=== PATIENT | female | born 1950 | race Caucasian/White ===

== ENCOUNTER 2016-09-07 09:48 | Day surgery (SDC) | payer MEDICARE ==
[~2016-09-07] VITALS: Ht 165.1 cm; Wt 48.8 kg
[2016-09-07 11:00] VITALS: BP 142/67; PULSE 57; RESP 24; Ht 165.1 cm; Wt 48.8 kg
[2016-09-07] MEDS ORDERED: PROPOFOL 20 ML ONE ×2 (11:06→12:03)
[2016-09-07] MEDS ORDERED: LITHIUM CARBONATE PO (11:29)
[2016-09-07] MEDS ORDERED: EYE DROPS BOTH EYES (11:29)
[2016-09-07] MEDS ORDERED: LEVOTHYROXINE PO (11:29)
[2016-09-07 12:33] VITALS: BP 134/62; PULSE 56; RESP 18
--- NOTE | 2016-09-11 10:08 | GILP ---
DATE OF PROCEDURE: 09/07/2016 PROCEDURE PERFORMED: 1. Esophagogastroduodenoscopy and biopsy. 2. Colonoscopy, biopsy and polypectomy. SURGEON: Richard Morgan MD PREOPERATIVE DIAGNOSES: 1. Abdominal pain. 2. Chronic heartburn. 3. Screening colonoscopy. POSTOP DIAGNOSES: 1. Gastroesophageal reflux disease. 2. Gastritis with erosions. 3. Gastric mucosal biopsies are taken for H. pylori test. 4. Colonoscopy all the way to the cecum. 5. Three colon polyps in the cecum and in the transverse colon that were removed using the snare and electrocautery. 6. Two small polyps were removed using the biopsy forceps. 7. Diverticulosis of the colon. 8. Internal hemorrhoids. INDICATION: The patient is a 65-year-old female patient who had abdominal pain and chronic heartburn not responding to therapy. The patient also needed a screening colonoscopy. The procedures and the possible complications were well explained to the patient. She understood and consented to the procedures. DESCRIPTION OF PROCEDURE: Under the influence of anesthesia, the gastroscope was carefully introduced into the esophagus and under direct vision it was advanced to the stomach and to the pylorus and to the duodenal bulb and descending duodenum. Findings. In the esophagus: The patient had gastroesophageal reflux disease. Stomach: She had gastritis with erosions. Gastric mucosal biopsies were taken for H. pylori test. The duodenum was normal. The colonoscope was carefully introduced in the rectum and under direct vision it was advanced all the way to the cecum. Findings: The patient had multiple colon polyps. Two cecal polyps and two in the transverse colon were removed using the snare and electrocautery. Two small colon polyps were removed using the biopsy forceps. The patient has diverticulosis of the colon and internal hemorrhoids. She tolerated the procedures very well and there were no complications from the procedure. At the end of the procedure she was awake with stable vital signs and she was discharged home in the care of her family. IMPRESSION: Please see postop diagnoses. PLAN: 1. Omeprazole 40 mg p.o. every a.m. 2. Await histopathology reports. 3. Because of the multiple colon polyps the patient had, she will need next screening colonoscopy in 3 years. Dictated By: MD EMILY Maloney/melinat/fermin /Document#: [id number]
== END 2016-09-07 18:02 | disposition home or self-care (01) ==
LOC: GIL 09:48
PROVIDERS: ATTEND Internal Medicine Gastroenterology
DX: R19.4 Change in bowel habit (principal); K57.90 Diverticulosis of intestine, part unspecified, without perforation or abscess without bleeding; K29.60 Other gastritis without bleeding; K21.9 Gastro-esophageal reflux disease without esophagitis; D12.3 Benign neoplasm of transverse colon; E03.9 Hypothyroidism, unspecified
CPT/HCPCS: 87081; 88305